=== PATIENT | male | born 1965 | race Caucasian/White ===

== ENCOUNTER 2024-08-29 20:17 | Observation (INO) | payer BC ==
[2024-08-29] MEDS ORDERED: Naloxone 0.4 MG/ML SDV IVPUSH PRN ×3 (20:55→22:27)
[2024-08-29 21:01] LABS: INR 1.05; PROTHROMBIN TIME 11.1 SECONDS (9.7-12.0)
[2024-08-29] MEDS: Morphine 2 MG/ML SYRINGE IVPUSH ONE (21:01)
[2024-08-29] MEDS: Sodium Chloride 0.9% 1,000 ML IV SCH (21:01)
[2024-08-29] MEDS: Sodium Chloride 0.9% 10 ML Syringe FLUSH PRN (21:01)
[2024-08-29 21:02] LABS: PTT,PARTIAL THROMBOPLSTIN TIME 27.8 SECONDS (21.7-31.4)
[2024-08-29] MEDS: Ondansetron 4 MG/2 ML SDV IVPUSH ONE (22:12)
[2024-08-29] MEDS: HYDROmorphone 1 MG/ML Syringe IVPUSH ONE (22:12)
[2024-08-29] MEDS ORDERED: Lactated Ringers 1,000 ML IV SCH (22:30)
[2024-08-29] MEDS ORDERED: Piperacillin/Tazobactam 4.5 GM in Sodium Chloride 0.9% 100 ML IV SCH (22:30)
[2024-08-29] MEDS: Ketorolac 30 MG/ML SDV IVPUSH SCH (23:05)
[2024-08-29] MEDS: Piperacillin/Tazobactam 4.5 GM in Sodium Chloride 0.9% 100 ML IV ONE (23:05)
[2024-08-29] MEDS: Heparin Sodium 5,000 Units/ML Vial SUBCUT SCH (23:18)
[2024-08-30] MEDS: Morphine 2 MG/ML SYRINGE IVPUSH PRN (03:03)
[2024-08-30] MEDS ORDERED: Ondansetron 4 MG/2 ML SDV IVPUSH PRN ×2 (04:00→10:35)
[2024-08-30] MEDS: Piperacillin/Tazobactam 4.5 GM in Sodium Chloride 0.9% 100 ML IV SCH (04:13)
[2024-08-30] MEDS: Morphine 4 MG/ML Syringe IVPUSH PRN (04:57)
[2024-08-30 05:34] LABS: BASOPHILS PERCENT AUTO 0.3 % (0.0-1.0); EOSINOPHILS ABSOLUTE AUTO 0.1 K/mm3 (0.0-0.4); EOSINOPHILS PERCENT AUTO 0.6 % (0.0-6.0); HEMATOCRIT 43.2 % (42.0-52.0); HEMOGLOBIN 15.3 gm/dl (14.0-18.0); IMMATURE GRAN ABSOLUTE AUTO 0.07 K/mm3 (0.00-0.05); IMMATURE GRAN PERCENT AUTO 0.5 % (0.0-0.4); LYMPHOCYTES PERCENT AUTO 7.3 % (24.0-44.0); MEAN CORPUSCULAR HEMOGLOBIN 29.8 pg (28.0-32.0); MEAN CORPUSCULAR HGB CONC 35.4 g/dl (32.0-36.0); MEAN PLATELET VOLUME 9.7 fl (9.4-12.4); MONOCYTES ABSOLUTE AUTO 1.2 K/mm3 (0.0-0.8); MONOCYTES PERCENT AUTO 9.1 % (0.0-8.0); NEUTROPHILS ABSOLUTE AUTO 11.2 K/mm3 (1.8-7.7); NEUTROPHILS PERCENT AUTO 82.2 % (41.0-71.0); PLATELET COUNT,PLT 246 K/mm3 (150-400); RED BLOOD CELL COUNT 5.14 M/mm3 (4.52-5.90)
[2024-08-30 05:55] LABS: ALBUMIN 3.4 g/dl (3.4-5.0); ANION GAP 12.8 (5-15); BILIRUBIN TOTAL 1.1 mg/dL (0.2-1.0); BUN/CREATININE RATIO 10.9 (14-18); CALCIUM 8.7 mg/dL (8.5-10.1); CREATININE 1.1 mg/dL (0.7-1.3); EST CRCL DRUG DOSING (CG) 64.57 mL/min; POTASSIUM,K 3.8 mEq/L (3.5-5.1); PROTEIN TOTAL,TP 6.8 g/dl (6.4-8.2)
[2024-08-30 06:04] LABS: INR 1.08; PROTHROMBIN TIME 11.4 SECONDS (9.7-12.0)
[2024-08-30] MEDS: Sodium Chloride 0.9% 1,000 ML IV SCH ×2 (08:22→14:59)
[2024-08-30] MEDS ORDERED: Midazolam 1 MG/ML 2 ML SDV ONE (08:39)
[2024-08-30] MEDS ORDERED: fentaNYL 250 MCG/5 ML SDV ONE (08:39)
[2024-08-30] MEDS ORDERED: Propofol 200 MG/20 ML SDV ONE ×2 (08:39→10:44)
[2024-08-30] MEDS ORDERED: Rocuronium 50 MG/5 ML Vial ONE (08:40)
[2024-08-30] MEDS ORDERED: Ondansetron 4 MG/2 ML SDV ONE (08:40)
[2024-08-30] MEDS ORDERED: Lidocaine 1% 5 ML VIAL ONE (08:40)
[2024-08-30] MEDS ORDERED: Phenylephrine 1% 10 MG/ML SDV ONE (09:04)
[2024-08-30] MEDS ORDERED: ePHEDrine 50 MG/ML SDV ONE (09:17)
[2024-08-30] MEDS ORDERED: Dexamethasone 4 MG/ML 5 ML MDV ONE (09:34)
[2024-08-30] MEDS ORDERED: Lactated Ringers 1,000 ML ONE (09:47)
[2024-08-30] MEDS: Iopamidol 612 MG/ML 30 ML SDV ONE (10:26)
[2024-08-30] MEDS: Sodium Chloride 0.9% 50 ML SDV ONE (10:26)
[2024-08-30] MEDS ORDERED: HYDROmorphone 0.5 MG/0.5 ML Syringe IVPUSH PRN (10:35)
[2024-08-30] MEDS ORDERED: fentaNYL 100 MCG/2 ML SDV IVPUSH PRN (10:35)
[2024-08-30] MEDS ORDERED: fentaNYL 100 MCG/2 ML SDV ONE (10:49)
[2024-08-30] MEDS ORDERED: Sugammadex Sodium 200 MG/2 ML VIAL IV ONE (10:55)
[2024-08-30] MEDS ORDERED: Lidocaine 1% 2 ML ONE (10:55)
[2024-08-30] MEDS ORDERED: Ketorolac 30 MG/ML SDV ONE (12:00)
[2024-08-30] MEDS: Piperacillin/Tazobactam 4.5 GM in Water For Injection, Sterile 20 ML IV SCH ×2 (14:57→16:09)
[2024-08-31] MEDS: Lisinopril 5 MG Tab PO SCH (09:47)
== END 2024-08-31 14:26 | disposition home or self-care (01) ==
LOC: JD.ED 20:17 → JD.MS 21:48
PROVIDERS: ADMIT Surgery; ATTEND Surgery
DX: K80.12 Calculus of gallbladder with acute and chronic cholecystitis without obstruction (principal); I10 Essential (primary) hypertension; Z79.899 Other long term (current) drug therapy
CPT/HCPCS: 36415; 47563; 76000; 80053; 85025; 85610; 85730; 86850; 86900; 86901; 93005; 96361; 96374; 96375; 99284; A9270; J1100; J1171; J1644; J1885; J2250; J2270; J2371; J2405; J2543; J2704; J3010; J3490; J7030; J7120; Q9967; 00790; 99140; 99222